=== PATIENT | male | born 2000 | race Caucasian/White ===

== ENCOUNTER 2023-07-28 08:07 | Emergency (ER) | payer OTHER ==
[~2023-07-28] VITALS: Ht 172.7 cm; Wt 77.1 kg
[2023-07-28] MEDS: KETOROLAC 30 MG/ML 1ML VIAL IM ONE (11:54)
[2023-07-28] MEDS ORDERED: METH-1164 PO (12:22)
[2023-07-28 12:29] VITALS: BP 121/82; TEMP 97.8; O2SAT 98
== END 2023-07-28 12:30 | disposition home or self-care (01) ==
LOC: M ED 08:07
DX: M62.838 Other muscle spasm (principal); V43.53XA Car driver injured in collision with pick-up truck in traffic accident, initial encounter; Y92.9 Unspecified place or not applicable; Y93.9 Activity, unspecified; Y99.9 Unspecified external cause status; F17.290 Nicotine dependence, other tobacco product, uncomplicated
CPT/HCPCS: 72125; 73030; 96372; 99283; J1885

== ENCOUNTER 2025-05-25 02:01 | Emergency (ER) | payer OTHER ==
[~2025-05-25] VITALS: Ht 172.7 cm; Wt 77.3 kg
[~2025-05-25 02:01] MED LIST: METH-1164 PO
[2025-05-25 04:33] LABS: HIV 1&2 SCREEN NEGATIVE (NEGATIVE)
[2025-05-25] MEDS: TETANUS/DIPHTH/ACEL. PERTUSSIS 0.5 ML SYR IM.IMMUN ONE (05:49)
[2025-05-25 06:29] VITALS: BP 108/64; TEMP 97.6; O2SAT 98
[2025-05-25 07:16] LABS: HEPATITIS C VIRUS ABY INDEX < 0.02 INDEX (<0.8)
== END 2025-05-25 06:38 | disposition home or self-care (01) ==
LOC: M ED 02:01
DX: Z77.21 Contact with and (suspected) exposure to potentially hazardous body fluids (principal); Z23 Encounter for immunization; Z79.899 Other long term (current) drug therapy